=== PATIENT | male | born 1975 | race American Indian/Alaskan Native ===

== ENCOUNTER 2016-11-09 19:21 | Emergency (ER) | payer SELFPAY ==
[2016-11-09 19:29] VITALS: BP 139/96; PULSE 60; RESP 16; TEMP 98.2; O2SAT 97
--- NOTE | 2016-11-09 20:03 | ED PDOC ---
HPI: Head Injury Time Seen by Provider: 11/09/16 19:32 Chief Complaint (Nursing): Medical Clearance Chief Complaint (Provider): Multiple injuries History Per: Patient History/Exam Limitations: no limitations Onset/Duration Of Symptoms: Mins (prior to arrival) Additional Complaint(s): Pedro Mon is a 41 year male who presents to the emergency department via [facility] department for an evaluation of head injury associated with right shoulder pain and right wrist pain sustained as patient was being detained prior to arrival. Police reported patient was being held down and resisted arrest which resulted in his head hitting against pavement. Denied any loss of consciousness. Abrasions on bilateral elbows are noted. PMD: none provided Past Medical History Reviewed: Historical Data, Nursing Documentation, Vital Signs Vital Signs: Last Vital Signs Temp 98.2 F 11/09/16 19:26 Pulse 60 11/09/16 19:26 Resp 16 11/09/16 19:26 BP 139/96 H 11/09/16 19:26 Pulse Ox 97 11/09/16 19:26 - Medical History PMH: Sickle Cell Disease Denies: Diabetes, Hepatitis, HIV, HTN, Seizures, Sexually Transmitted Disease - Surgical History Surgical History: No Surg Hx - Family History Family History: States: Unknown Family Hx - Social History Current smoker - smoking cessation education provided: Yes Alcohol: Occasional Drugs: Denies - Home Medications Home Medications: Ambulatory Orders Medication Instructions Recorded Cyclobenzaprine [Cyclobenzaprine 10 mg PO BID PRN #6 tab 06/13/16 HCl] Naproxen [Naprosyn] 500 mg PO Q12 PRN #20 tablet 06/13/16 - Allergies Allergies/Adverse Reactions: Allergies Allergy/AdvReac Type Severity Reaction Status Date / Time No Known Allergies Allergy Verified 06/13/16 00:52 Review of Systems ROS Statement: Except As Marked, All Systems Reviewed And Found Negative Musculoskeletal: Positive for: Shoulder Pain (right), Hand Pain (right wrist) Skin: Positive for: Other (bilateral elbow abrasions) Neurological: Positive for: Other (head injury) Psych: Negative for: Other (loss of conciousness) Physical Exam - Reviewed Nursing Documentation Reviewed: Yes Vital Signs Reviewed: Yes - Physical Exam Appears: Positive for: Well, Non-toxic, No Acute Distress Head Exam: Positive for: ATRAUMATIC (small abrasion on occipital skull), NORMAL INSPECTION, NORMOCEPHALIC Skin: Positive for: Normal Color, Rash (bilateral elbow abrasions) Eye Exam: Positive for: Normal appearance, EOMI, PERRL. Negative for: Nystagmus ENT: Positive for: Normal ENT Inspection Neck: Positive for: Normal, Painless ROM, Supple Cardiovascular/Chest: Positive for: Regular Rate, Rhythm Respiratory: Positive for: CNT, Normal Breath Sounds Gastrointestinal/Abdominal: Positive for: Normal Exam, Bowel Sounds, Soft. Negative for: Tenderness Extremity: Positive for: Tenderness (right shoulder and right radial aspect of wrist), Other (limited ROM of right shoulder). Negative for: Normal ROM, Pedal Edema, Deformity, Swelling Neurologic/Psych: Positive for: Alert, code inspector II-XII (intact), Oriented - ECG O2 Sat by Pulse Oximetry: 97 (RA) Pulse Ox Interpretation: Normal Medical Decision Making Medical Decision Making: Initial Impression: Head injury; Right hand pain; Right shoulder pain Differential Diagnosis: Traumatic intracranial hemorrhage; Right hand injury; Right shoulder fracture Initial Plan: * CT head without contrast * Xray wrist (right) * Motrin 400mg PO * Xray shoulder (right) Time: 2155 --CT head FINDINGS: Brain: No hemorrhage. No significant white matter disease. No edema. Ventricles: No hydrocephalus. Bones: Skull is intact. Minimal nasal bone irregularity. Deformity of right medial wall of right orbit/lamina papyracea, question acute injury versus prior fracture. Correlate clinically. Sinuses: No acute sinusitis. Mastoid air cells: No mastoid effusion. IMPRESSION: No CT evidence of acute intracranial abnormality. Minimal nasal bone irregularity. Deformity of right medial wall of right orbit/ lamina papyracea, question acute injury versus prior fracture. Correlate clinically. --Clinical correlation: no history of orbit injury and no findings on orbital exam. --Xray shoulder (right): no acute findings --Xray shoulder (left): no acute findings --Xray wrist (right): no acute findings --Patient is cleared by Dr. Jane. Scribe Attestation: Documented by Sheila Venegas, acting as a scribe for Honorio Nguyen MD. Provider Scribe Attestation: All medical record entries made by the Scribe were at my direction and personally dictated by me. I have reviewed the chart and agree that the record accurately reflects my personal performance of the history, physical exam, medical decision making, and the department course for this patient. I have also personally directed, reviewed, and agree with the discharge instructions and disposition. Disposition - Clinical Impression Clinical Impression: Head injury, Shoulder sprain, Wrist sprain, Adjustment disorder - Patient ED Disposition Is Patient to be Admitted: No Doctor Will See Patient In The: Office Counseled Patient/Family Regarding: Studies Performed, Diagnosis, Need For Followup - Disposition Referrals: [facility] [Outside] Disposition: Routine/Home Disposition Time: 22:01 Condition: GOOD Additional Instructions: Patient is medically and psychiatrically clear for incarceration. Take advil for pain. Follow up with your PCP in 2-3 days. Instructions: Mood Disorders (ED), Head Injury (ED), Shoulder Sprain (ED), Hand Sprain (ED)
--- NOTE | 2016-11-09 23:22 | CT ---
EXAM: CT Head Without Intravenous Contrast CLINICAL HISTORY: 41 years old, male; Injury or trauma; Injury Reported: Hit head on pavement; Initial encounter; Concussion / head injury; Without loss of consciousness; Injury date: 11-09-2016; Additional info: Head injury. Sent phy. Doc. With request TECHNIQUE: Axial computed tomography images of the head/brain without intravenous contrast. This CT exam was performed using one or more of the following dose reduction techniques: automated exposure control, adjustment of the mA and/or kV according to patient size, and/or use of iterative reconstruction technique. Coronal and sagittal reformatted images were created and reviewed. COMPARISON: No relevant prior studies available. FINDINGS: Brain: No hemorrhage. No significant white matter disease. No edema. Ventricles: No hydrocephalus. Bones: Skull is intact. Minimal nasal bone irregularity. Deformity of right medial wall of right orbit/lamina papyracea, question acute injury versus prior fracture. Correlate clinically. Sinuses: No acute sinusitis. Mastoid air cells: No mastoid effusion. IMPRESSION: No CT evidence of acute intracranial abnormality. Minimal nasal bone irregularity. Deformity of right medial wall of right orbit/lamina papyracea, question acute injury versus prior fracture. Correlate clinically.
--- NOTE | 2016-11-10 08:56 | RAD ---
PROCEDURE: Radiographs of the Left Shoulder HISTORY: shoulder pain injury COMPARISON: No prior. FINDINGS: BONES: Normal. No fracture. JOINTS: Normal. Glenohumeral and acromioclavicular joints preserved. No osteoarthritis. SOFT TISSUES: Normal. OTHER FINDINGS: None. IMPRESSION: Normal radiographs of the left shoulder.
--- NOTE | 2016-11-10 08:57 | RAD ---
PROCEDURE: Right Wrist Radiographs. HISTORY: wrist pain injury COMPARISON: None. FINDINGS: BONES: Normal. No fracture. JOINTS: Normal. No dislocation. SOFT TISSUES: Normal. OTHER FINDINGS: None. IMPRESSION: Normal right wrist radiographs.
--- NOTE | 2016-11-10 08:57 | RAD ---
PROCEDURE: Radiographs of the Right Shoulder HISTORY: shoulder pain injury COMPARISON: No prior. FINDINGS: BONES: Normal. No fracture. JOINTS: Normal. Glenohumeral and acromioclavicular joints preserved. No osteoarthritis. SOFT TISSUES: Normal. OTHER FINDINGS: None. IMPRESSION: Normal radiographs of the right shoulder.
== END 2016-11-09 22:25 ==
LOC: H.ER 19:21
DX: S09.90XA Unspecified injury of head, initial encounter (principal); S43.402A Unspecified sprain of left shoulder joint, initial encounter; S63.501A Unspecified sprain of right wrist, initial encounter; Y35.813A Legal intervention involving manhandling, suspect injured, initial encounter; Y92.89 Other specified places as the place of occurrence of the external cause; F43.20 Adjustment disorder, unspecified

== ENCOUNTER 2016-11-23 15:38 | Emergency (ER) | payer SELFPAY ==
[2016-11-23 15:44] VITALS: BP 136/79; PULSE 78; RESP 16; TEMP 99; O2SAT 99
--- NOTE | 2016-11-23 16:15 | ED PDOC ---
Upper Extremity Pain/Injury Time Seen by Provider: 11/23/16 15:56 Chief Complaint (Nursing): Upper Extremity Problem/Injury Chief Complaint (Provider): shoulder injury History Per: Patient Additional Complaint(s): 41yo M in ED for right shoulder injury sustained on the 4 nov was seen in ED for injury and had negative xray results. now back in ER c/o of worsening shoulder pin. states that he was kicked out of an orthopedic office(can't remember name of provider). Pt admits to tingling sensation to arm and difficulty with range of motion. Past Medical History Reviewed: Historical Data, Nursing Documentation, Vital Signs Vital Signs: Last Vital Signs Temp 99.0 F 11/23/16 15:41 Pulse 78 11/23/16 15:41 Resp 16 11/23/16 15:41 BP 136/79 11/23/16 15:41 Pulse Ox 99 11/23/16 15:41 - Medical History PMH: Sickle Cell Disease Denies: Diabetes, Hepatitis, HIV, HTN, Seizures, Sexually Transmitted Disease - Family History Family History: States: Unknown Family Hx - Home Medications Home Medications: Ambulatory Orders Medication Instructions Recorded Cyclobenzaprine [Cyclobenzaprine 10 mg PO BID PRN #6 tab 06/13/16 HCl] Naproxen [Naprosyn] 500 mg PO Q12 PRN #20 tablet 06/13/16 Ketorolac Tromethamine [Toradol] 10 mg PO TID #20 cap 11/23/16 - Allergies Allergies/Adverse Reactions: Allergies Allergy/AdvReac Type Severity Reaction Status Date / Time No Known Allergies Allergy Verified 06/13/16 00:52 Review of Systems ROS Statement: Except As Marked, All Systems Reviewed And Found Negative Musculoskeletal: Positive for: Shoulder Pain Physical Exam - Reviewed Nursing Documentation Reviewed: Yes Vital Signs Reviewed: Yes - Physical Exam Appears: Positive for: Non-toxic, No Acute Distress Skin: Positive for: Normal Color, Warm, DRY Cardiovascular/Chest: Positive for: Regular Rate, Rhythm Respiratory: Positive for: CNT, Normal Breath Sounds Extremity: Positive for: Other (shoulder right isde: FROM no AC joint tednerness no deofmirty good pronation and supination. ) Neurologic/Psych: Positive for: Alert, Oriented - ECG O2 Sat by Pulse Oximetry: 99 Medical Decision Making Medical Decision Making: pt was found in exam room asleep and required sternal rub to awaken him. then pt c/o for shoulder pain after being awakened. Pt shows FROM of shoulder and is able to range and fully extend shoulder. pt was given tordol IM. Disposition - Clinical Impression Clinical Impression: Shoulder injury - Patient ED Disposition Is Patient to be Admitted: No Counseled Patient/Family Regarding: Need For Followup, Rx Given - Disposition [facility]errals[facility] [Outside] [facility] [Outside] Disposition: Routine/Home Disposition Time: 16:18 Condition: STABLE Additional Instructions: you need to be seen by an orthopedic doctor. please call to make an appointment. Prescriptions: Ketorolac Tromethamine [Toradol] 10 mg PO TID #20 cap Instructions: Shoulder Pain (ED) Forms: [employer] (Sri Lankan)
== END 2016-11-23 16:12 | disposition home or self-care (01) ==
LOC: H.ER 15:38
DX: M25.511 Pain in right shoulder (principal)
CPT/HCPCS: 96372; 99283; J1885

== ENCOUNTER 2017-06-04 22:56 | Emergency (ER) | payer SELFPAY ==
[2017-06-04 23:12] VITALS: BP 137/90; PULSE 110; RESP 16; TEMP 97; O2SAT 98
== END 2017-06-05 | disposition left against medical advice (07) ==
LOC: H.ER 22:56
DX: Z02.89 Encounter for other administrative examinations (principal)
CPT/HCPCS: 99281; LWBS0

== ENCOUNTER 2017-06-21 01:03 | Emergency (ER) | payer SELFPAY ==
[2017-06-21 01:18] VITALS: BMI 28.1
[2017-06-21 01:21] VITALS: O2SAT 97
--- NOTE | 2017-06-21 04:58 | CT ---
EXAM: CT Head Without Intravenous Contrast CLINICAL HISTORY: 42 years old, male; Signs and symptoms; Other: ETOH; Additional info: Intox, found down TECHNIQUE: Axial computed tomography images of the head/brain without intravenous contrast. All CT scans at this facility use one or more dose reduction techniques, viz.: automated exposure control; ma/kV adjustment per patient size (including targeted exams where dose is matched to indication; i.e. head); or iterative reconstruction technique. Coronal and sagittal reformatted images were created and reviewed. COMPARISON: CT - HEAD W/O CONTRAST 2016-11-09 21:29 FINDINGS: Brain: Unremarkable. No hemorrhage. No significant white matter disease. No edema. Ventricles: Unremarkable. No ventriculomegaly. Bones/joints: Nasal bone fracture with mild displacement on the left. Deformity the medial wall of the right orbit, lamina appreciated and is unchanged consistent with old trauma. Soft tissues: Unremarkable. Sinuses: There is mild mucoperiosteal thickening in the right maxillary sinus, consistent with chronic sinusitis. Mastoid air cells: Unremarkable as visualized. No mastoid effusion. IMPRESSION: No acute intracranial abnormality. Nasal bone fracture with mild displacement on the left. Chronic right medial orbital wall fracture.
--- NOTE | 2017-06-21 04:59 | ED PDOC ---
HPI: Psych/Substance Abuse Time Seen by Provider: 06/21/17 01:19 Chief Complaint (Nursing): Alcohol Ingestion ED Caveat: Acuity of Condition History Per: Patient History/Exam Limitations: intoxication Onset/Duration Of Symptoms: Hrs Current Symptoms Are (Timing): Still Present Additional Complaint(s): Patient found down in [employer], intoxicated, brought in by EMS for further eval. Patient uncooperative with history taking and exam. Past Medical History Reviewed: Unable To Obtain Vital Signs: Last Vital Signs Temp 96.6 F L 06/21/17 01:18 Pulse 72 06/21/17 01:18 Resp 18 06/21/17 01:18 BP 131/70 06/21/17 01:18 Pulse Ox 97 06/21/17 01:18 - Medical History PMH: Sickle Cell Disease Denies: Diabetes, Hepatitis, HIV, HTN, Seizures, Sexually Transmitted Disease - Family History Family History: States: Unknown Family Hx - Home Medications Home Medications: Ambulatory Orders Medication Instructions Recorded Cyclobenzaprine [Cyclobenzaprine 10 mg PO BID PRN #6 tab 06/13/16 HCl] Naproxen [Naprosyn] 500 mg PO Q12 PRN #20 tablet 06/13/16 Ketorolac Tromethamine [Toradol] 10 mg PO TID #20 cap 11/23/16 - Allergies Allergies/Adverse Reactions: Allergies Allergy/AdvReac Type Severity Reaction Status Date / Time No Known Allergies Allergy Verified 06/21/17 01:17 Review of Systems Review Of Systems: ROS cannot be obtained secondary to pt's inabilty to answer questions. Physical Exam - Reviewed Nursing Documentation Reviewed: Yes Vital Signs Reviewed: Yes - Physical Exam Appears: Positive for: Well, Non-toxic, No Acute Distress Head Exam: Negative for: ATRAUMATIC (abrasions to R forehead/superior orbit, no crepitus/stepoff) Skin: Positive for: Normal Color Eye Exam: Positive for: Normal appearance ENT: Positive for: Other (Abrasions to lips on R) Neck: Positive for: Normal, Painless ROM Cardiovascular/Chest: Positive for: Regular Rate, Rhythm, Chest Non Tender Respiratory: Positive for: Normal Breath Sounds Gastrointestinal/Abdominal: Positive for: Normal Exam Neurologic/Psych: Negative for: Oriented (intoxicated, slurred speech, uncooperative) - ECG O2 Sat by Pulse Oximetry: 97 Medical Decision Making Medical Decision Making: A/P Patient presenting with alcohol intoxication Not allowing workup, combative and verbally abusive, de-escalation attempted, however patient required chemical and physical restraints CT's pending Re-eval pending for sobriety 0700 Patient walked out of ER with steady gait without signing paperwork. Disposition - Clinical Impression Clinical Impression: Alcohol abuse - Disposition Referrals: [facility] [Outside] Disposition: Routine/Home Disposition Time: 06:51 Condition: IMPROVED Instructions: Alcohol Abuse and Alcoholism (DC) Forms: [employer] (Italian)
[2017-06-21 06:51] VITALS: BP 129/72; PULSE 82; RESP 17; TEMP 98
== END 2017-06-21 06:45 | disposition home or self-care (01) ==
LOC: H.ER 01:03
DX: F10.129 Alcohol abuse with intoxication, unspecified (principal); S00.81XA Abrasion of other part of head, initial encounter; W19.XXXA Unspecified fall, initial encounter; Y92.89 Other specified places as the place of occurrence of the external cause
CPT/HCPCS: 70450; 96372; 99285; G0480; J1630; J2060

== ENCOUNTER 2017-08-17 23:53 | Observation (INO) | payer MEDICAID ==
[2017-08-17 23:53] VITALS: BMI 28.1
--- NOTE | 2017-08-18 00:53 | ED PDOC ---
HPI: Psych/Substance Abuse Time Seen by Provider: 08/18/17 00:10 Chief Complaint (Nursing): Alcohol Ingestion Chief Complaint (Provider): Alcohol Ingestion ED Caveat: Intoxicated History Per: Patient, EMS, Other ([employer]) History/Exam Limitations: intoxication Modifying Factor(s): Alcohol Involuntary Hold By: Local Law Enforcement Additional Complaint(s): 42 year old AA male, well known to ED and provider, presents to emergency department under [place] police custody for psychiatric and medical clearance for incarceration. Patient is a poor historian due to admitted alcohol use but denies any further medical complaints. PMD: none provided Past Medical History Reviewed: Historical Data, Nursing Documentation, Vital Signs Vital Signs: Last Vital Signs Temp 97.9 F 08/17/17 23:56 Pulse 101 H 08/17/17 23:56 Resp 18 08/17/17 23:56 BP 132/92 H 08/17/17 23:56 Pulse Ox 97 08/17/17 23:56 - Medical History PMH: HTN, Sickle Cell Disease Denies: Diabetes, Hepatitis, HIV, Seizures, Sexually Transmitted Disease - Family History Family History: States: Unknown Family Hx - Social History Current smoker - smoking cessation education provided: No Alcohol: > 2 Drinks/Day Drugs: Denies - Home Medications Home Medications: Ambulatory Orders Medication Instructions Recorded Unobtainable 08/18/17 - Allergies Allergies/Adverse Reactions: Allergies Allergy/AdvReac Type Severity Reaction Status Date / Time No Known Allergies Allergy Verified 06/21/17 01:17 Review of Systems Review Of Systems: ROS cannot be obtained secondary to pt's inabilty to answer questions. Physical Exam - Reviewed Nursing Documentation Reviewed: Yes Vital Signs Reviewed: Yes - Physical Exam Appears: Positive for: Non-toxic, No Acute Distress Head Exam: Positive for: ATRAUMATIC, NORMAL INSPECTION, NORMOCEPHALIC Skin: Positive for: Normal Color Eye Exam: Positive for: Normal appearance Neck: Positive for: Normal, Painless ROM, Supple Cardiovascular/Chest: Positive for: Regular Rate, Rhythm. Negative for: Murmur Respiratory: Positive for: Normal Breath Sounds. Negative for: Wheezing, Respiratory Distress Gastrointestinal/Abdominal: Positive for: Normal Exam, Soft. Negative for: Tenderness Extremity: Positive for: Normal ROM (upper/lower). Negative for: Deformity ( upper/lower) Neurologic/Psych: Positive for: Mood/Affect (flat), Gait (unsteady), Other ( slurred speech with alcohol on breath). Negative for: Alert (somnolent), Motor/ Sensory Deficits, Facial Droop - Laboratory Results Result Diagrams: 08/18/17 12:30 08/18/17 12:30 - ECG O2 Sat by Pulse Oximetry: 97 (RA) Pulse Ox Interpretation: Normal Medical Decision Making Medical Decision Making: Initial Impression: 42 year old male evaluated for psychiatric and medical clearance for incarceration Initial Plan: * Alcohol serum * Drug screen, urine * Crisis evaluation * Glucose, POC Scribe Attestation: Documented by Sheila Venegas, acting as a scribe for Lionel Ellis MD. Provider Scribe Attestation: All medical record entries made by the Scribe were at my direction and personally dictated by me. I have reviewed the chart and agree that the record accurately reflects my personal performance of the history, physical exam, medical decision making, and the department course for this patient. I have also personally directed, reviewed, and agree with the discharge instructions and disposition. Disposition - Clinical Impression Clinical Impression: Alcohol intoxication delirium, Prolonged QT interval - Patient ED Disposition Is Patient to be Admitted: Transfer of Care - Disposition Disposition Time: 07:00 Condition: FAIR Patient Signed Over To: Rambo Baumann III
[2017-08-18 12:39] LABS: BASO # 0.1 K/uL (0.0-0.2); BASO % 1.7 % (0.0-2.0); EOS # 0.1 K/uL (0.0-0.7); EOS % 1.1 % (0.0-4.0); HEMOGLOBIN 14.8 g/dL (12.0-18.0); LYMPH # 1.8 K/uL (1.0-4.3); LYMPH % 33.2 % (20.0-40.0); MEAN CELL VOLUME 88.3 fl (80.0-94.0); MEAN CORPUSCULAR HEMOGLOBIN 29.6 pg (27.0-31.0); MEAN CORPUSCULAR HGB CONC 33.6 g/dL (33.0-37.0); MEAN PLATELET VOLUME 7.1 fl (7.2-11.7); MONO # 0.7 K/uL (0.0-0.8); MONO % 12.6 % (0.0-10.0); NEUT # 2.7 K/uL (1.8-7.0); NEUT % 51.4 % (50.0-75.0); NRBC % 0.1 % (0.0-0.0); RBC 4.99 Mil/uL (4.40-5.90); RED CELL DISTRIBUTION WIDTH 16.6 % (11.5-14.5); WHITE BLOOD COUNT 5.3 K/uL (4.8-10.8)
[2017-08-18 13:08] LABS: ALB/GLOB RATIO 1.3 (1.0-2.1); ALBUMIN 4.1 g/dL (3.5-5.0); ALT/SGPT 92 U/L (21-72); AST/SGOT 129 U/L (17-59); BLOOD UREA NITROGEN 15 mg/dl (9-20); CALCIUM 8.1 mg/dL (8.4-10.2); GFR AFRICAN-AMERICAN > 60; GFR NON-AFRICAN AMERICAN > 60; LIPASE 128 U/L (23-300)
--- NOTE | 2017-08-18 13:26 | ED PDOC ---
- Laboratory Results Result Diagrams: 08/18/17 12:30 08/18/17 12:30 - ECG O2 Sat by Pulse Oximetry: 96 Medical Decision Making Medical Decision Making: etoh level markedly elevated on arrival on re-eval 9am arousable c/o abdominal pain. further labs obtained, and repeat etoh approx 11hrs into ED stay reveals etoh level still 300+ lipase neg Given life threatening level of alcohol intoxication on arrival, failure to metabolize to sobriety within 12 hours and very high risk for significant withdrawal forthcoming, place Obs tele to hospitalist for further management as cannot medically clear for incarceration. EKG obtained prolonged QTc compared to prior this year. trop added on, denies chest pain. Admit Dr Whitmore care transferred 230p Disposition - Clinical Impression Clinical Impression: Alcohol intoxication delirium, Prolonged QT interval - POA Present On Arrival: None - Disposition Disposition: Hospitalized as Observation Patient Disposition Time: 09:00 Condition: FAIR
[2017-08-18] MEDS ORDERED: Multivitamin (MVI) 10 ML, Thiamine 100 MG, Folic Acid 1 MG in Dextrose 5%/0.45% NS 1,00... IV ONE (15:04)
--- NOTE | 2017-08-18 15:07 | CP.PCM.HP ---
History of Present Illness - History of Present Illness History of Present Illness: CC: "I feel like shit" HPI: 42M PMH daily ETOH abuse, seizures, presents to the ED under [place] [employer] Custody for medical and psychiatric clearance for incarceration. Patient had ETOH level of 500 on arrival, 12 hours later, ETOH level continues to be 300. Patient is not exhibiting any signs of withdrawal at this time, continues to be confused. Patient not administered anything in ED. Will observe on telemetry overnight for possible withdrawal as pt stabilizes for incarceration. In ED, patient was assessed by Mental Health worker and recommended custody to [employer] and follow up substance abuse counseling. HD stable NAD. ROS: per HPI, all other systems reviewed and negative PMSH: daily ETOH abuse, seizures FH: denies SH: daily ETOH abuse, denies other substance abuse. Hx of selling heroin and cocaine Meds: as below NKDA Present on Admission - Present on Admission Any Indicators Present on Admission: No Past Patient History - Past Social History Alcohol: > 2 Drinks/Day Drugs: Denies - CARDIAC Hx Cardiac Disorders: (unknown) - PULMONARY Hx Respiratory Disorders: (unknown) - NEUROLOGICAL Hx Neurological Disorder: (unknown) - HEENT Hx HEENT Problems: (unknown) - RENAL Hx Chronic Kidney Disease: (unknown) - ENDOCRINE/METABOLIC Hx Endocrine Disorders: (unknown) - HEMATOLOGICAL/ONCOLOGICAL Hx Blood Disorders: (unknown) - INTEGUMENTARY Hx Dermatological Problems: (unknown) - MUSCULOSKELETAL/RHEUMATOLOGICAL Hx Musculoskeletal Disorders: (unknown) - GENITOURINARY/GYNECOLOGICAL Hx Genitourinary Disorders: (unknown) - PSYCHIATRIC Hx Psychophysiologic Disorder: (unknown) - SURGICAL HISTORY Hx Surgeries: No - ANESTHESIA Hx Anesthesia: No Meds Allergies/Adverse Reactions: Allergies Allergy/AdvReac Type Severity Reaction Status Date / Time No Known Allergies Allergy Verified 06/21/17 01:17 Physical Exam - Constitutional Additional comments: Vitals Reviewed GEN: WDWN, GROGGY HEENT: NCAT, PERRL, EOMI HEART: RRR, +S1S2, NO MRG LUNG: CTAB, NO WRR ABD: soft, NT, ND, No HSM, No masses EXT: normal pedal pulses, normal capillary refill NEURO: awake, alert, no focal deficits SKIN: warm, dry- PSYCH: normal mood, normal affect Results - Vital Signs Recent Vital Signs: Last Vital Signs Temp 97.9 F 08/18/17 08:05 Pulse 92 H 08/18/17 14:00 Resp 16 08/18/17 14:00 BP 128/88 08/18/17 14:00 Pulse Ox 96 08/18/17 15:00 - Labs Result Diagrams: 08/18/17 12:30 08/18/17 12:30 Labs: Laboratory Results - last 24 hr 08/18/17 08/18/17 08/18/17 00:17 00:58 09:19 WBC RBC Hgb Hct MCV MCH MCHC RDW Plt Count MPV Neut % (Auto) Lymph % (Auto) [place] % (Auto) Eos % (Auto) Baso % (Auto) Neut # (Auto) Lymph # (Auto) [place] # (Auto) Eos # (Auto) Baso # (Auto) Sodium Potassium Chloride Carbon Dioxide Anion Gap BUN Creatinine Est GFR ( Amer) Est GFR (Non-Af Amer) POC Glucose (mg/dL) 94 86 Random Glucose Calcium Total Bilirubin AST ALT Alkaline Phosphatase Troponin I Total Protein Albumin Globulin Albumin/Globulin Ratio Lipase Alcohol, Quantitative 560 H* 08/18/17 08/18/17 08/18/17 12:30 12:30 14:15 WBC 5.3 RBC 4.99 Hgb 14.8 D Hct 44.0 MCV 88.3 MCH 29.6 MCHC 33.6 RDW 16.6 H Plt Count 247 MPV 7.1 L Neut % (Auto) 51.4 Lymph % (Auto) 33.2 [place] % (Auto) 12.6 H Eos % (Auto) 1.1 Baso % (Auto) 1.7 Neut # (Auto) 2.7 Lymph # (Auto) 1.8 [place] # (Auto) 0.7 Eos # (Auto) 0.1 Baso # (Auto) 0.1 Sodium 148 Potassium 3.4 L Chloride 106 Carbon Dioxide 24 Anion Gap 21 H BUN 15 Creatinine 0.8 Est GFR ( Amer) > 60 Est GFR (Non-Af Amer) > 60 POC Glucose (mg/dL) Random Glucose 86 Calcium 8.1 L Total Bilirubin 0.3 AST 129 H D ALT 92 H D Alkaline Phosphatase 71 Troponin I < 0.0120 Total Protein 7.2 Albumin 4.1 Globulin 3.1 Albumin/Globulin Ratio 1.3 Lipase 128 Alcohol, Quantitative 316 H* Assessment & Plan - Assessment and Plan (Free Text) Plan: 42M PMH daily ETOH abuse, seizures, presents to the ED under [place] [employer] Custody for medical and psychiatric clearance for incarceration. Patient had ETOH level of 500 on arrival, 12 hours later, ETOH level continues to be 300. Patient is not exhibiting any signs of withdrawal at this time, continues to be confused. Patient not administered anything in ED. Will observe on telemetry overnight for possible withdrawal as pt stabilizes for incarceration. In ED, patient was assessed by Mental Health worker and recommended custody to [employer] and follow up substance abuse counseling. HD stable NAD. Substance Abuse ETOH Intoxication - awaiting ETOH level to reach safe level for discharge to [employer] - Banana Bag - Folic Acid/Thiamine/MVI - HD stable - likely DC in AM Hx of Seizures - observe - pt does not appear to be on any meds VTE lovenox
[2017-08-18] MEDS ORDERED: Iohexol 240 (50 ml) PO ONE (16:35)
[2017-08-18] MEDS ORDERED: Iodixanol 320 MG/ML 100 ML BOTTLE IV ONE (17:26)
[2017-08-18] MEDS ORDERED: Sodium Chloride 0.9% 100 ML ONE (17:27)
--- NOTE | 2017-08-18 19:30 | RAD ---
HISTORY: SOB COMPARISON: No prior. FINDINGS: LUNGS: No active pulmonary disease. PLEURA: No significant pleural effusion identified, no pneumothorax apparent. CARDIOVASCULAR: Normal. OSSEOUS STRUCTURES: No significant abnormalities. VISUALIZED UPPER ABDOMEN: Normal. OTHER FINDINGS: None. IMPRESSION: No active disease.
[2017-08-19] MEDS ORDERED: Oxycodone/Acetaminophen 5/325 mg Tab PO STA ×3 (00:25→06:05)
[2017-08-19] MEDS: Multivitamin With Minerals Tab PO SCH (08:48)
--- NOTE | 2017-08-19 09:30 | CARD ---
APPROVED REPORT EKG Measurement Heart [id number] <Conclusion> Sinus bradycardia Prolonged QT Abnormal ECG
--- NOTE | 2017-08-19 10:51 | CT ---
PROCEDURE: CT Chest, Abdomen and Pelvis with intravenous contrast HISTORY: r/o dissection COMPARISON: None. TECHNIQUE: Helical CT of the chest, abdomen and pelvis is performed for evaluation of aortic dissection. Images of been acquired from the neck through symphysis pubis. IV dose administered: Visipaque 321 100 cc. Radiation dose: Total exam DLP = mGy-cm. This CT exam was performed using one or more of the following dose reduction techniques: Automated exposure control, adjustment of the mA and/or kV according to patient size, and/or use of iterative reconstruction technique. FINDINGS: CT CHEST WITH CONTRAST: LUNGS: No infiltrate identified. No nodule, mass or consolidation. MEDIASTINUM: Incidental views of the visualized inferior neck are grossly nonfocal as imaged as well as the thoracic inlet. Normal caliber aorta and pulmonary arterial trunk. No aortic dissection. Normal size heart. LYMPH NODES: Unremarkable. PLEURA: Unremarkable. No pneumothorax. No pleural fluid. BONES: Unremarkable. OTHER FINDINGS: None. CT ABDOMEN AND PELVIS: LIVER: Unremarkable. No gross lesion or ductal dilatation. GALLBLADDER AND BILE DUCTS: Unremarkable. PANCREAS: Unremarkable. No gross lesion or ductal dilatation. SPLEEN: Unremarkable. ADRENALS: Unremarkable. No mass. KIDNEYS AND URETERS: Unremarkable. No hydronephrosis. No solid mass. VASCULATURE: Normal abdominal aorta as well as iliac arterial system bilaterally. BOWEL: Opacified small-bowel appears unremarkable diffusely. Retained fecal material obscures ascending colon and proximal transverse colon with mural thickening of the descending colon difficult to exclude due to collapse. Clinically correlate further. No bowel obstruction. APPENDIX: Appendix not appear inflamed. PERITONEUM: Unremarkable. No free fluid. No free air. LYMPH NODES: Unremarkable. No enlarged lymph nodes. BLADDER: Unremarkable. REPRODUCTIVE: Prostate gland appears somewhat prominent. BONES: No acute fracture. OTHER FINDINGS: None. IMPRESSION: 1. No evidence of thoracic or abdominal aortic dissection or aneurysm. No significant stenosis either. 2. Nonacute chest CT. No suspicious cardiovascular or pulmonary findings. No significant lymphadenopathy. 3. Collapse of the left hemicolon limits its evaluation as well as lack of oral contrast transit into the colon. Segmental colitis affecting the descending colon is not completely excluded though this simply could be a function of bowel collapse. Clinically correlate. Concordant preliminary report from [facility], 08/18/2017.
--- NOTE | 2017-08-19 13:26 | CP.PCM.DIS ---
Provider - Provider Date of Admission: 08/18/17 13:22 Attending physician: Geri Whitmore DO Consults: Dr. Patel- cardiology Time Spent in preparation of Discharge (in minutes): 25 Hospital Course - Lab Results Lab Results: Most Recent Lab Values WBC 5.3 K/uL (4.8-10.8) 08/18/17 12:30 RBC 4.99 Mil/uL (4.40-5.90) 08/18/17 12:30 Hgb 14.8 g/dL (12.0-18.0) D 08/18/17 12:30 Hct 44.0 % (35.0-51.0) 08/18/17 12:30 MCV 88.3 fl (80.0-94.0) 08/18/17 12:30 MCH 29.6 pg (27.0-31.0) 08/18/17 12:30 MCHC 33.6 g/dL (33.0-37.0) 08/18/17 12:30 RDW 16.6 % (11.5-14.5) H 08/18/17 12:30 Plt Count 247 K/uL (130-400) 08/18/17 12:30 MPV 7.1 fl (7.2-11.7) L 08/18/17 12:30 Neut % (Auto) 51.4 % (50.0-75.0) 08/18/17 12:30 Lymph % (Auto) 33.2 % (20.0-40.0) 08/18/17 12:30 [place] % (Auto) 12.6 % (0.0-10.0) H 08/18/17 12:30 Eos % (Auto) 1.1 % (0.0-4.0) 08/18/17 12:30 Baso % (Auto) 1.7 % (0.0-2.0) 08/18/17 12:30 Neut # (Auto) 2.7 K/uL (1.8-7.0) 08/18/17 12:30 Lymph # (Auto) 1.8 K/uL (1.0-4.3) 08/18/17 12:30 [place] # (Auto) 0.7 K/uL (0.0-0.8) 08/18/17 12:30 Eos # (Auto) 0.1 K/uL (0.0-0.7) 08/18/17 12:30 Baso # (Auto) 0.1 K/uL (0.0-0.2) 08/18/17 12:30 Sodium 148 mmol/l (132-148) 08/18/17 12:30 Potassium 3.4 MMOL/L (3.6-5.0) L 08/18/17 12:30 Chloride 106 mmol/L (98-107) 08/18/17 12:30 Carbon Dioxide 24 mmol/L (22-30) 08/18/17 12:30 Anion Gap 21 (10-20) H 08/18/17 12:30 BUN 15 mg/dl (9-20) 08/18/17 12:30 Creatinine 0.8 mg/dl (0.8-1.5) 08/18/17 12:30 Est GFR ( Amer) > 60 08/18/17 12:30 Est GFR (Non-Af Amer) > 60 08/18/17 12:30 POC Glucose (mg/dL) 86 mg/dL (65-110) 08/18/17 09:19 Random Glucose 86 mg/dL (75-110) 08/18/17 12:30 Calcium 8.1 mg/dL (8.4-10.2) L 08/18/17 12:30 Total Bilirubin 0.3 mg/dl (0.2-1.3) 08/18/17 12:30 AST 129 U/L (17-59) H D 08/18/17 12:30 ALT 92 U/L (21-72) H D 08/18/17 12:30 Alkaline Phosphatase 71 U/L (38-126) 08/18/17 12:30 Troponin I < 0.0120 ng/mL (0.00-0.120) 08/19/17 06:24 Total Protein 7.2 G/DL (6.3-8.2) 08/18/17 12:30 Albumin 4.1 g/dL (3.5-5.0) 08/18/17 12:30 Globulin 3.1 gm/dL (2.2-3.9) 08/18/17 12:30 Albumin/Globulin Ratio 1.3 (1.0-2.1) 08/18/17 12:30 Lipase 128 U/L (23-300) 08/18/17 12:30 Alcohol, Quantitative < 10 mg/dl (0-10) 08/19/17 06:24 - Hospital Course Hospital Course: This is a 42 year old male with a past medical history of daily ETOH abuse, seizures, who presented to the ED under [place] police Custody for medical and psychiatric clearance for incarceration. The patient was found to be acutely intoxicated with ETOH level of 500 on arrival to the ED. In ED, patient was assessed by Mental Health worker and recommended custody to [facility] and follow up substance abuse counseling. After arrival to telemetry floor, the patient c/o tearing chest pain and shortness of breath. Chest/Abdomen/Pelvis CT was done which revealed no aortic dissection or acute abnormality. EKG shows sinus bradycardia with prolonged QT but otherwise unremarkable. Today, the patient is improved. ETOH level < 10. No further c/o abdominal pain this morning. Labwork shows mild hypokalemia of 3.4 which was repleted. Stable for discharge in police custody. 1) Acute alcohol intoxication - resolved - no signs of withdrawal 2) Prolonged QT - EKG otherwise normal - Dr. Patel, cardiology - Avoid QT prolonging medications in this patient - stable for discharge 3) Abdominal pain, uncertain etiology - No findings on CT scan - Resolved Discharge Exam - Head Exam Head Exam: ATRAUMATIC, NORMAL INSPECTION, NORMOCEPHALIC - Additional Findings Additional findings: Physical exam: Constitutional- cooperative, awake, alert Head- NCAT, PERRL Eye- PERRL, EOMI ENT- normal exam, MMM. Neck- normal inspection, supple, no JVD Respiratory- CTAB, no wheezes rales rhonchi Cardiovascular- RRR, +S1, +S2 no MRG GI/Abdominal- normal bowel sounds, soft, no mass, no hsm Skin- warm, dry Extremities Exam- normal capillary refill, normal inspection Neurological Exam- alert, awake, oriented Psych- normal mood, normal affect Discharge Plan - Follow Up Plan Condition: FAIR Disposition: RELEASED IN POLICE CUSTODY
--- NOTE | 2017-08-19 15:55 | CP.PCM.PN ---
Subjective - Date & Time of Evaluation Date of Evaluation: 08/19/17 Time of Evaluation: 11:00 - Subjective Subjective: Patient seen and examined at bedside. C/o weakness and nausea this morning and was somnolent. Unable to walk with PT due to lethargy. Objective - Vital Signs/Intake and Output Vital Signs (last 24 hours): Temp Pulse Resp BP Pulse Ox 98.3 F 64 18 148/86 99 08/19/17 12:33 08/19/17 12:33 08/19/17 12:33 08/19/17 12:33 08/19/17 12:33 - Medications Medications: Current Medications Acetaminophen (Tylenol 325mg Tab) 650 mg PO Q6 PRN PRN Reason: Pain, Mild (1-3) Last Admin: 08/18/17 22:52 Dose: 650 mg Folic Acid 1 mg/ Sodium (Chloride) 100.2 mls @ 60 mls/hr IVPB DAILY [facility] Multivitamins/Minerals (Therapeutic-M Tab) 1 tab PO DAILY [facility] Last Admin: 08/19/17 08:48 Dose: 1 tab Ondansetron HCl (Zofran Inj) 4 mg IVP Q6 PRN PRN Reason: Nausea/Vomiting Thiamine HCl (Vitamin B1 Tab) 100 mg PO DAILY [facility] Last Admin: 08/19/17 08:49 Dose: 100 mg - Labs Labs: 08/18/17 12:30 08/18/17 12:30 - Additional Findings Additional findings: Physical exam: Constitutional- cooperative, awake, alert Head- NCAT, PERRL Eye- PERRL, EOMI ENT- normal exam, MMM. Neck- normal inspection, supple, no JVD Respiratory- CTAB, no wheezes rales rhonchi Cardiovascular- RRR, +S1, +S2 no MRG GI/Abdominal- normal bowel sounds, soft, no mass, no hsm Skin- warm, dry Extremities Exam- normal capillary refill, normal inspection Neurological Exam- alert, awake, oriented Psych- normal mood, normal affect Assessment and Plan - Assessment and Plan (Free Text) Plan: This is a 42 year old male with a past medical history of daily ETOH abuse, seizures, who presented to the ED under [place] police Custody for medical and psychiatric clearance for incarceration. The patient was found to be acutely intoxicated with ETOH level of 500 on arrival to the ED. In ED, patient was assessed by Mental Health worker and recommended custody to D and follow up substance abuse counseling. After arrival to telemetry floor, the patient c/o tearing chest pain and shortness of breath. Chest/Abdomen/Pelvis CT was done which revealed no aortic dissection or acute abnormality. EKG shows sinus bradycardia with prolonged QT but otherwise unremarkable. Today, the patient is somnolent and lethargic, unable to ambulate. ETOH level < 10. No further c/o abdominal pain this morning. Labwork shows mild hypokalemia of 3.4 which was repleted. Continue to monitor at this time. 1) Acute alcohol intoxication resolved, however patient still lethargic - unable to ambulate at this time - no signs of withdrawal at this time but will place po ativan order in PRN 2) Prolonged QT - EKG otherwise normal - Dr. Patel, cardiology - Avoid QT prolonging medications in this patient - no further workup 3) Abdominal pain, uncertain etiology - No findings on CT scan - Resolved
--- NOTE | 2017-08-19 16:35 | CARD ---
APPROVED REPORT EKG Measurement Heart [id number] 158P60 [id number] <Conclusion> Normal sinus rhythm with sinus arrhythmia Prolonged QT Abnormal ECG
[2017-08-20 05:53] LABS: HEMOGLOBIN 14.3 g/dL (12.0-18.0); MEAN CELL VOLUME 87.9 fl (80.0-94.0); MEAN CORPUSCULAR HEMOGLOBIN 29.5 pg (27.0-31.0); MEAN CORPUSCULAR HGB CONC 33.5 g/dL (33.0-37.0); RBC 4.85 Mil/uL (4.40-5.90); RED CELL DISTRIBUTION WIDTH 16.3 % (11.5-14.5); WHITE BLOOD COUNT 5.2 K/uL (4.8-10.8)
[2017-08-20 06:09] LABS: BLOOD UREA NITROGEN 13 mg/dl (9-20); CALCIUM 9.2 mg/dL (8.4-10.2); GFR AFRICAN-AMERICAN > 60; GFR NON-AFRICAN AMERICAN > 60
[2017-08-20] MEDS: Multivitamin With Minerals Tab PO SCH (08:39)
[2017-08-20 16:03] VITALS: BP 155/82; PULSE 71; RESP 20; TEMP 99.5; O2SAT 95
--- NOTE | 2017-08-20 17:34 | CP.PCM.DIS ---
Provider - Provider Date of Admission: 08/18/17 13:22 Attending physician: Geri Whitmore DO Primary care physician: NOne Consults: none Time Spent in preparation of Discharge (in minutes): 15 Hospital Course - Lab Results Lab Results: Most Recent Lab Values WBC 5.2 K/uL (4.8-10.8) 08/20/17 05:05 RBC 4.85 Mil/uL (4.40-5.90) 08/20/17 05:05 Hgb 14.3 g/dL (12.0-18.0) 08/20/17 05:05 Hct 42.6 % (35.0-51.0) 08/20/17 05:05 MCV 87.9 fl (80.0-94.0) 08/20/17 05:05 MCH 29.5 pg (27.0-31.0) 08/20/17 05:05 MCHC 33.5 g/dL (33.0-37.0) 08/20/17 05:05 RDW 16.3 % (11.5-14.5) H 08/20/17 05:05 Plt Count 236 K/uL (130-400) 08/20/17 05:05 MPV 7.1 fl (7.2-11.7) L 08/18/17 12:30 Neut % (Auto) 51.4 % (50.0-75.0) 08/18/17 12:30 Lymph % (Auto) 33.2 % (20.0-40.0) 08/18/17 12:30 [place] % (Auto) 12.6 % (0.0-10.0) H 08/18/17 12:30 Eos % (Auto) 1.1 % (0.0-4.0) 08/18/17 12:30 Baso % (Auto) 1.7 % (0.0-2.0) 08/18/17 12:30 Neut # (Auto) 2.7 K/uL (1.8-7.0) 08/18/17 12:30 Lymph # (Auto) 1.8 K/uL (1.0-4.3) 08/18/17 12:30 [place] # (Auto) 0.7 K/uL (0.0-0.8) 08/18/17 12:30 Eos # (Auto) 0.1 K/uL (0.0-0.7) 08/18/17 12:30 Baso # (Auto) 0.1 K/uL (0.0-0.2) 08/18/17 12:30 Sodium 137 mmol/l (132-148) 08/20/17 05:05 Potassium 3.7 MMOL/L (3.6-5.0) 08/20/17 05:05 Chloride 95 mmol/L (98-107) L 08/20/17 05:05 Carbon Dioxide 28 mmol/L (22-30) 08/20/17 05:05 Anion Gap 18 (10-20) 08/20/17 05:05 BUN 13 mg/dl (9-20) 08/20/17 05:05 Creatinine 0.9 mg/dl (0.8-1.5) 08/20/17 05:05 Est GFR ( Amer) > 60 08/20/17 05:05 Est GFR (Non-Af Amer) > 60 08/20/17 05:05 POC Glucose (mg/dL) 86 mg/dL (65-110) 08/18/17 09:19 Random Glucose 109 mg/dL (75-110) 08/20/17 05:05 Calcium 9.2 mg/dL (8.4-10.2) 08/20/17 05:05 Total Bilirubin 0.3 mg/dl (0.2-1.3) 08/18/17 12:30 AST 129 U/L (17-59) H D 08/18/17 12:30 ALT 92 U/L (21-72) H D 08/18/17 12:30 Alkaline Phosphatase 71 U/L (38-126) 08/18/17 12:30 Troponin I < 0.0120 ng/mL (0.00-0.120) 08/19/17 06:24 Total Protein 7.2 G/DL (6.3-8.2) 08/18/17 12:30 Albumin 4.1 g/dL (3.5-5.0) 08/18/17 12:30 Globulin 3.1 gm/dL (2.2-3.9) 08/18/17 12:30 Albumin/Globulin Ratio 1.3 (1.0-2.1) 08/18/17 12:30 Lipase 128 U/L (23-300) 08/18/17 12:30 Alcohol, Quantitative < 10 mg/dl (0-10) 08/19/17 06:24 - Hospital Course Hospital Course: 42 year old male with a past medical history of daily ETOH abuse, seizures, presented to the ED under [place] police Custody for medical and psychiatric clearance for incarceration. The patient was found to be acutely intoxicated with ETOH level of 500 on arrival to the ED. In ED, patient was assessed by Mental Health worker and recommended follow up substance abuse counseling. After arrival to telemetry floor, the patient c/o tearing chest pain and shortness of breath. Chest/Abdomen/Pelvis CT was done which revealed no aortic dissection or acute abnormality. EKG showed sinus bradycardia with prolonged QT but otherwise unremarkable.Trop x 3 were negative . Patient was observed in telemetry floor. presently awake , alert oriented x 3 with steady gai, hemodynamically stable, afebrile with no tremors or tachycardia. patient is feeling better . Will discharge him to snf . Counselled on ETOH abuse 1. Acute alcohol intoxication and ETOH abuse Discharge Exam - Head Exam Head Exam: ATRAUMATIC, NORMAL INSPECTION, NORMOCEPHALIC - Eye Exam Eye Exam: EOMI, Normal appearance, PERRL Pupil Exam: NORMAL ACCOMODATION - ENT Exam ENT Exam: Mucous Membranes Moist, Normal Exam - Neck Exam Neck exam: Full Rom, Normal Inspection - Respiratory Exam Respiratory Exam: Clear to PA & Lateral, NORMAL BREATHING PATTERN. absent: Rales, Rhonchi, Wheezes - Cardiovascular Exam Cardiovascular Exam: REGULAR RHYTHM, RRR, +S1, +S2. absent: JVD - GI/Abdominal Exam GI & Abdominal Exam: Normal Bowel Sounds, Soft. absent: Distended, Guarding, Rebound, Tenderness - Rectal Exam Rectal Exam: Deferred - Extremities Exam Extremities exam: normal capillary refill, normal inspection, pedal pulses present - Back Exam Back exam: NORMAL INSPECTION - Neurological Exam Neurological exam: Alert, CN II-XII Intact, Oriented x3, Reflexes Normal - Psychiatric Exam Psychiatric exam: Normal Affect, Normal Mood - Skin Skin Exam: Dry, Intact, Normal Color, Warm Discharge Plan - Follow Up Plan Condition: STABLE Disposition: HOME/ ROUTINE Patient education suggested?: Yes Instructions: Delirium (Confusion) (DC), Alcohol Abuse and Alcoholism (DC) Additional Instructions: follow up in 1 week with pmd Referrals: [facility] [place] [Outside]
== END 2017-08-20 17:15 | disposition home or self-care (01) ==
LOC: H.ER 23:53 → H.ERHOLD 08-18 13:22 → H.TEL 08-18 15:14
PROVIDERS: ADMIT Student in an Organized Health Care Education/Training Program; ATTEND Student in an Organized Health Care Education/Training Program
DX: F10.129 Alcohol abuse with intoxication, unspecified (principal); D57.1 Sickle-cell disease without crisis; I10 Essential (primary) hypertension; Y90.8 Blood alcohol level of 240 mg/100 ml or more; R56.9 Unspecified convulsions; R00.1 Bradycardia, unspecified; E87.6 Hypokalemia
CPT/HCPCS: 36415; 71045; 71260; 74177; 80048; 80053; 80320; 82948; 83690; 84484; 85025; 85027; 93005; 96374; 96375; 99285; G0378; J2060; J3411; J7042; Q9966; Q9967

== ENCOUNTER 2017-08-25 22:37 | Emergency (ER) | payer MEDICAID ==
[2017-08-25 22:37] VITALS: BMI 28.1
--- NOTE | 2017-08-25 22:50 | ED PDOC ---
HPI: General Adult Time Seen by Provider: 08/25/17 22:48 Chief Complaint (Nursing): Medical Clearance Chief Complaint (Provider): medical clearance History Per: Patient (42 y/o male intoxicated under police custody here for medical and psychiatric clearance. Patient was noted screaming and threatening [place] [employer] prior to ED arrival. Patient has been seen in ED multiple times for alcohol intoxication. Currently has no complaints but is refusing to answer questions by provider.) Past Medical History Reviewed: Historical Data, Nursing Documentation, Vital Signs Vital Signs: Last Vital Signs Temp 98.1 F 08/25/17 22:41 Pulse 66 08/25/17 22:41 Resp 16 08/25/17 22:41 BP 123/90 08/25/17 22:41 Pulse Ox 98 08/25/17 22:41 - Medical History PMH: HTN, Sickle Cell Disease Denies: Diabetes, Hepatitis, HIV, Seizures, Sexually Transmitted Disease Comment Only: Chronic Kidney Disease (unknown) - Family History Family History: States: Unknown Family Hx - Home Medications Home Medications: Ambulatory Orders Medication Instructions Recorded Unobtainable 08/18/17 - Allergies Allergies/Adverse Reactions: Allergies Allergy/AdvReac Type Severity Reaction Status Date / Time No Known Allergies Allergy Verified 08/25/17 22:41 Review of Systems ROS Statement: Except As Marked, All Systems Reviewed And Found Negative Physical Exam - Reviewed Nursing Documentation Reviewed: Yes Vital Signs Reviewed: Yes - Physical Exam Appears: Positive for: Well, Non-toxic, No Acute Distress Head Exam: Positive for: ATRAUMATIC, NORMAL INSPECTION, NORMOCEPHALIC Skin: Positive for: Normal Color, Warm, DRY Eye Exam: Positive for: EOMI, Normal appearance, PERRL ENT: Positive for: Normal ENT Inspection Neck: Positive for: Normal, Painless ROM Cardiovascular/Chest: Positive for: Regular Rate, Rhythm Respiratory: Positive for: CNT, Normal Breath Sounds Gastrointestinal/Abdominal: Positive for: Normal Exam, Soft Back: Positive for: Normal Inspection Extremity: Positive for: Normal ROM Neurologic/Psych: Positive for: Alert, Oriented - ECG O2 Sat by Pulse Oximetry: 98 - Progress ED Course And Treament: blood glucose 103 patient in no respiratory distress, sitting and staring blankly at provider, refusing to answer questions. Disposition - Clinical Impression Clinical Impression: Alcohol intoxication - Patient ED Disposition Is Patient to be Admitted: No - Disposition Disposition: Routine/Home Disposition Time: :50 Condition: FAIR Additional Instructions: PATIENT IS MEDICALLY AND PSYCHIATRICALLY CLEARED FOR INCARCERATION Instructions: General (DC), Alcohol Abuse and Alcoholism (DC)
[2017-08-25 23:23] VITALS: BP 130/78; PULSE 78; RESP 18; TEMP 98; O2SAT 99
== END 2017-08-25 23:23 | disposition home or self-care (01) ==
LOC: H.ER 22:37
DX: F10.129 Alcohol abuse with intoxication, unspecified (principal); Z00.8 Encounter for other general examination; Z02.89 Encounter for other administrative examinations

== ENCOUNTER 2018-05-05 22:11 | Emergency (ER) | payer OTHER ==
[2018-05-05 22:11] VITALS: BMI 28.1
[2018-05-06] MEDS ORDERED: Sodium Chloride 0.9% 1,000 ML IV STA ×3 (01:09→03:28)
--- NOTE | 2018-05-06 01:12 | ED PDOC ---
HPI: Abdomen Time Seen by Provider: 05/06/18 00:33 Chief Complaint (Nursing): Abdominal Pain Chief Complaint (Provider): abdominal pain History Per: Patient History/Exam Limitations: no limitations Onset/Duration Of Symptoms: Days (2), Waxing/Waning Current Symptoms Are (Timing): Still Present Location Of Pain/Discomfort: Epigastric Last Bowel Movement: Today Additional Complaint(s): 42 y/o male history of alcohol abuse presents for evaluation of upper abdominal pain x 2 days. Associated nonbloody diarrhea. Denies fever, chest pain, shortness of breath, palpitations, urinary symptoms. Patient also reports swel ling to hands and feet. Patient states he is homeless and has been doing a lot of walking in the cold weather. Last drink 16:00 yesterday Past Medical History Reviewed: Historical Data, Nursing Documentation, Vital Signs Vital Signs: Last Vital Signs Temp 98.1 F 05/05/18 22:57 Pulse 115 H 05/05/18 22:57 Resp 18 05/05/18 22:57 BP 166/82 H 05/05/18 22:57 Pulse Ox 97 05/05/18 22:57 - Medical History PMH: HTN, Sickle Cell Disease Denies: Diabetes, Hepatitis, HIV, Seizures, Sexually Transmitted Disease Comment Only: Chronic Kidney Disease (unknown) - Surgical History Surgical History: No Surg Hx - Family History Family History: States: Unknown Family Hx - Living Arrangements Living Arrangements: Alone - Social History Current smoker - smoking cessation education provided: Yes Alcohol: > 2 Drinks/Day Drugs: Denies - Home Medications Home Medications: Ambulatory Orders Medication Instructions Recorded Famotidine [Pepcid] 20 mg PO BID #20 tab 05/06/18 - Allergies Allergies/Adverse Reactions: Allergies Allergy/AdvReac Type Severity Reaction Status Date / Time No Known Allergies Allergy Verified 05/05/18 22:57 Review of Systems ROS Statement: Except As Marked, All Systems Reviewed And Found Negative Gastrointestinal: Positive for: Abdominal Pain Physical Exam - Reviewed Nursing Documentation Reviewed: Yes Vital Signs Reviewed: Yes - Physical Exam Appears: Positive for: Well, Non-toxic, No Acute Distress Head Exam: Positive for: ATRAUMATIC, NORMAL INSPECTION, NORMOCEPHALIC Skin: Positive for: Normal Color Eye Exam: Positive for: Normal appearance ENT: Positive for: Normal ENT Inspection Cardiovascular/Chest: Positive for: Regular Rate, Rhythm Respiratory: Positive for: Normal Breath Sounds Pulses-Dorsalis Pedis (L): 2+ Pulses-Dorsalis Pedis (R): 2+ Pulses-Post. Tibialis (L): 2+ Pulses-Post. Tibialis (R): 2+ Gastrointestinal/Abdominal: Positive for: Bowel Sounds, Soft, Tenderness (epigastric, RUQ, LUQ) Back: Positive for: Normal Inspection Extremity: Positive for: Normal ROM, Pedal Edema (bilateral). Negative for: Calf Tenderness Neurologic/Psych: Positive for: Alert, Oriented (x3) - Laboratory Results Result Diagrams: 05/06/18 01:25 05/06/18 01:25 - ECG O2 Sat by Pulse Oximetry: 97 - Progress ED Course And Treament: -cbc -cmp -lipase -ekg -IV NS bolus -IV pepcid -IV ativan Patient sleeping throughout ED visit; on re-eval, states he is feeling better. Patient educated on findings, discharged with rx Pepcid Advised follow up PMD within 2-3 days Return precautions given Disposition - Clinical Impression Clinical Impression: Abdominal pain, Alcohol abuse - Patient ED Disposition Is Patient to be Admitted: No Counseled Patient/Family Regarding: Studies Performed, Diagnosis, Need For Followup, Rx Given - Disposition Referrals: [facility] [Outside] Disposition: Routine/Home Disposition Time: 04:33 Condition: IMPROVED Prescriptions: Famotidine [Pepcid] 20 mg PO BID #20 tab Instructions: Gastritis, Alcohol Use - When Is Drinking a Problem?
[2018-05-06 01:41] LABS: BASO # 0.1 K/uL (0.0-0.2); BASO % 1.5 % (0.0-2.0); EOS % 0.9 % (0.0-4.0); HEMOGLOBIN 12.2 g/dL (12.0-18.0); LYMPH # 1.6 K/uL (1.0-4.3); LYMPH % 28.7 % (20.0-40.0); MEAN CELL VOLUME 81.6 fl (80.0-94.0); MEAN CORPUSCULAR HEMOGLOBIN 26.6 pg (27.0-31.0); MEAN CORPUSCULAR HGB CONC 32.6 g/dL (33.0-37.0); MEAN PLATELET VOLUME 7.4 fl (7.2-11.7); MONO # 0.7 K/uL (0.0-0.8); MONO % 13.2 % (0.0-10.0); NEUT # 3.1 K/uL (1.8-7.0); NEUT % 55.7 % (50.0-75.0); RBC 4.6 Mil/uL (4.40-5.90); RED CELL DISTRIBUTION WIDTH 14.8 % (11.5-14.5); WHITE BLOOD COUNT 5.6 K/uL (4.8-10.8)
[2018-05-06 01:51] LABS: ALB/GLOB RATIO 1.2 (1.0-2.1); ALBUMIN 3.8 g/dL (3.5-5.0); ALT/SGPT 32 U/L (21-72); AST/SGOT 37 U/L (17-59); BLOOD UREA NITROGEN 15 mg/dl (9-20); CALCIUM 8.7 mg/dL (8.4-10.2); GFR NON-AFRICAN AMERICAN > 60; LIPASE 64 U/L (23-300)
[2018-05-06 03:13] LABS: B-TYPE NATRIURETIC PEPTIDE 15.5 pg/ml (0-450)
[2018-05-06 03:18] LABS: SQUAMOUS EPITHIAL 1 /hpf (0-5); URINE BILIRUBIN NEGATIVE (NEGATIVE); URINE BLOOD NEGATIVE (NEGATIVE); URINE CLARITY CLEAR (Clear); URINE COLOR STRAW (YELLOW); URINE GLUCOSE (UA) NEG (NEGATIVE); URINE LEUKOCYTE ESTERASE NEG Leu/uL (Negative); URINE PROTEIN NEGATIVE (NEGATIVE); URINE UROBILINOGEN 0.2-1.0 mg/dL (0.2-1.0)
[2018-05-06 03:44] LABS: BARBITURATES, UR NEGATIVE (NEGATIVE); BENZODIAZEPINES, UR NEGATIVE (NEGATIVE); OPIATES, UR NEGATIVE (NEGATIVE); PHENCYCLIDINE, UR NEGATIVE (NEGATIVE)
[2018-05-06 04:36] VITALS: BP 138/86; PULSE 89; RESP 16; TEMP 98.8; O2SAT 97
--- NOTE | 2018-05-06 12:11 | CARD ---
APPROVED REPORT Date of service: 05/06/2018 EKG Measurement Heart [id number] <Conclusion> Normal sinus rhythm with sinus arrhythmia Prolonged QT Abnormal ECG
== END 2018-05-06 04:36 | disposition home or self-care (01) ==
LOC: H.ER 22:11
DX: R10.9 Unspecified abdominal pain (principal); F10.10 Alcohol abuse, uncomplicated; F17.200 Nicotine dependence, unspecified, uncomplicated; I12.9 Hypertensive chronic kidney disease with stage 1 through stage 4 chronic kidney disease, or unspecified chronic kidney disease
CPT/HCPCS: 80053; 80320; 80324; 80345; 80346; 80349; 80353; 80358; 80361; 81003; 83690; 83880; 83992; 85025; 93005; 96374; 99283; J2060; J7030

== ENCOUNTER 2018-07-04 03:49 | Emergency (ER) | payer SELFPAY ==
[2018-07-04] MEDS ORDERED: Naproxen 500 MG TAB PO ONE (04:16)
--- NOTE | 2018-07-04 04:22 | ED PDOC ---
HPI: General Adult Time Seen by Provider: 07/04/18 04:00 Chief Complaint (Nursing): Medical Clearance Chief Complaint (Provider): clearance for incarceration History Per: Patient Additional Complaint(s): 43 y/o male in policy custody here for medical and psychiatric clearance for incarceration. Patient complaining of pain to front, side, and back of right lower ribs, but denies injury. Patient states pain worse with movement and deep breaths. Patient also states he may be going through alcohol withdrawals, states he last drink was 23:00 last night. Denies fever, headache, nausea/vomiting, chest pain, shortness of breath, palpitations, changes in bowel movements, urinary symptoms. Past Medical History Reviewed: Historical Data, Nursing Documentation, Vital Signs Vital Signs: Last Vital Signs Temp 98.7 F 07/04/18 04:07 Pulse 108 H 07/04/18 04:07 Resp 18 07/04/18 04:07 BP 159/111 H 07/04/18 04:07 Pulse Ox 98 07/04/18 04:07 - Medical History PMH: HTN, Sickle Cell Disease Denies: Diabetes, Hepatitis, HIV, Seizures, Sexually Transmitted Disease Comment Only: Chronic Kidney Disease (unknown) - Surgical History Surgical History: No Surg Hx - Family History Family History: States: Unknown Family Hx - Social History Current smoker - smoking cessation education provided: Yes Alcohol: > 2 Drinks/Day Drugs: Cannabis - Home Medications Home Medications: Ambulatory Orders Medication Instructions Recorded Famotidine [Pepcid] 20 mg PO BID #20 tab 05/06/18 - Allergies Allergies/Adverse Reactions: Allergies Allergy/AdvReac Type Severity Reaction Status Date / Time No Known Allergies Allergy Verified 07/04/18 04:06 Review of Systems ROS Statement: Except As Marked, All Systems Reviewed And Found Negative Musculoskeletal: Positive for: Other (rib pain) Physical Exam - Reviewed Nursing Documentation Reviewed: Yes Vital Signs Reviewed: Yes - Physical Exam Appears: Positive for: Well, Non-toxic, No Acute Distress Head Exam: Positive for: ATRAUMATIC, NORMAL INSPECTION, NORMOCEPHALIC Skin: Positive for: Normal Color Eye Exam: Positive for: Normal appearance ENT: Positive for: Normal ENT Inspection Cardiovascular/Chest: Positive for: Regular Rate, Rhythm. Negative for: Chest Non Tender (tender to palpate right anterior inferior intercostals, right lateral intercostals.) Respiratory: Positive for: Normal Breath Sounds Gastrointestinal/Abdominal: Positive for: Normal Exam, Bowel Sounds, Soft. 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 Jane Disposition - Clinical Impression Clinical Impression: Alcohol abuse, Adjustment disorder, Musculoskeletal pain - Patient ED Disposition Is Patient to be Admitted: No Counseled Patient/Family Regarding: Studies Performed, Diagnosis, Need For F ollowup - Disposition Referrals: [facility] [Outside] Disposition: Discharged/Transfer to Law Enforcement Disposition Time: 05:52 Condition: IMPROVED Additional Instructions: Patient medically and psychiatrically cleared for incarceration Instructions: Muscle and Bone Pain (DC), Alcohol Abuse and Alcoholism (DC), Adjustment Disorder
[2018-07-04 04:56] VITALS: BP 159/111; PULSE 108; RESP 18; TEMP 98.7; O2SAT 98; BMI 26.4
--- NOTE | 2018-07-04 08:59 | RAD ---
Date of service: 07/04/2018 PROCEDURE: Radiographs of the Chest and Right Ribs. HISTORY: right chest/rib pain COMPARISON: Chest radiograph 08/18/2017 and lumbar spine series 06/13/2016. TECHNIQUE: Frontal radiograph of the chest and multiple oblique radiographs of the right ribs were obtained. 4 views obtained. FINDINGS: RIGHT RIBS: No fracture or focal lesion visualized. LUNGS: Clear. PLEURA: No pneumothorax or pleural fluid. CARDIOVASCULAR: Normal cardiac size. No pulmonary vascular congestion. No aortic atherosclerotic calcification present OTHER FINDINGS: Stable dextroscoliotic thoracolumbar spinal deformity. IMPRESSION: Unremarkable radiographs of the chest and right ribs. No right rib fracture.
--- NOTE | 2018-07-04 20:35 | CARD ---
APPROVED REPORT Date of service: 07/04/2018 EKG Measurement Heart [id number] <Conclusion> Normal sinus rhythm with sinus arrhythmia Normal ECG
== END 2018-07-04 06:32 ==
LOC: H.ER 03:49
DX: F10.10 Alcohol abuse, uncomplicated (principal); F43.20 Adjustment disorder, unspecified; I12.9 Hypertensive chronic kidney disease with stage 1 through stage 4 chronic kidney disease, or unspecified chronic kidney disease; D57.1 Sickle-cell disease without crisis; F17.200 Nicotine dependence, unspecified, uncomplicated; R07.89 Other chest pain